=== PATIENT | female | born 1965 | race Caucasian/White ===

== ENCOUNTER → 2016-10-18 | Outpatient (CLI) | payer BC, OTHER | LOC: FIMAGING 15:43 | PROVIDERS: ATTEND Physical Medicine & Rehabilitation Neuromuscular Medicine | DX: M54.6 Pain in thoracic spine (principal); G89.29 Other chronic pain ==

== ENCOUNTER → 2016-11-01 | Outpatient (CLI) | payer BC, OTHER | LOC: FIMAGING 11:00 | PROVIDERS: ATTEND Physical Medicine & Rehabilitation Neuromuscular Medicine | DX: M54.6 Pain in thoracic spine (principal) ==

== ENCOUNTER → 2017-05-23 | Outpatient (CLI) | payer BC, OTHER | LOC: FIMAGING 13:06 | PROVIDERS: ATTEND Family Medicine | DX: Z12.31 Encounter for screening mammogram for malignant neoplasm of breast (principal); Z80.3 Family history of malignant neoplasm of breast ==

== ENCOUNTER → 2017-06-05 | Outpatient (CLI) | payer BC, OTHER | LOC: FIMAGING 09:34 | PROVIDERS: ATTEND Family Medicine | DX: R92.8 Other abnormal and inconclusive findings on diagnostic imaging of breast (principal) ==

== ENCOUNTER 2017-11-03 | Emergency (ER) | payer BC, OTHER | END 2017-11-03 14:00 | disposition home or self-care (01) | DX: R10.13 Epigastric pain (principal) ==